=== PATIENT | male | born 1935 | race Two or more races ===

== ENCOUNTER 2019-11-07 10:04 | Emergency (ER) | payer OTHER ==
[~2019-11-07] VITALS: Ht 167.6 cm; Wt 84.8 kg
[2019-11-07] MEDS ORDERED: PREDNISONE 5MG PO (10:20)
[2019-11-07] MEDS ORDERED: ZYTIGA250 MG PO (10:21)
== END 2019-11-07 14:28 | disposition home or self-care (01) ==
LOC: ER 10:04 → EDBD 11:01 → ER 11:01
DX: R42 Dizziness and giddiness (principal)

== ENCOUNTER 2019-12-02 08:34 | Outpatient (CLI) | payer OTHER ==
[~2019-12-02 08:34] MED LIST: PREDNISONE 5MG PO; ZYTIGA250 MG PO
== END 2019-12-02 15:00 | disposition home or self-care (01) ==
LOC: LAB 08:34
DX: D53.8 Other specified nutritional anemias (principal); D53.1 Other megaloblastic anemias, not elsewhere classified; D51.0 Vitamin B12 deficiency anemia due to intrinsic factor deficiency; E27.40 Unspecified adrenocortical insufficiency; E03.8 Other specified hypothyroidism

== ENCOUNTER 2020-03-27 15:07 | Inpatient (IN) | payer OTHER, MEDICARE ==
[~2020-03-27] VITALS: Ht 167.6 cm; Wt 5.0 kg
[2020-03-28] MEDS ORDERED: ACETAMINOPHEN500 M1 PO (09:35)
== END 2020-03-30 14:37 | disposition home or self-care (01) | DRG 723 ==
LOC: SURH 15:07
PROVIDERS: ADMIT Internal Medicine Hematology & Oncology
PROC: 30233R1 Transfusion of Nonautologous Platelets into Peripheral Vein, Percutaneous Approach (ICD-10-PCS; principal; 2020-03-27)
PROC: 8E0ZXY6 Isolation (ICD-10-PCS; 2020-03-27)
PROC: 30233N1 Transfusion of Nonautologous Red Blood Cells into Peripheral Vein, Percutaneous Approach (ICD-10-PCS; 2020-03-28)
DX: C61 Malignant neoplasm of prostate (principal); C79.82 Secondary malignant neoplasm of genital organs; C79.51 Secondary malignant neoplasm of bone; E44.0 Moderate protein-calorie malnutrition; D63.0 Anemia in neoplastic disease; R97.21 Rising PSA following treatment for malignant neoplasm of prostate; D69.6 Thrombocytopenia, unspecified

== ENCOUNTER 2020-04-13 16:59 | Inpatient (IN) | payer OTHER, MEDICARE ==
[~2020-04-13] VITALS: Ht 167.6 cm; Wt 72.6 kg
[~2020-04-13 16:59] MED LIST changes: +ACETAMINOPHEN500 M1 PO
[2020-04-14] MEDS ORDERED: VITAMINS (08:22)
[2020-04-17] MEDS ORDERED: FOLIC ACID1 MG PO (09:00)
[2020-04-17] MEDS ORDERED: PYRIDOXINE HCL100 MG PO (09:00)
== END 2020-04-17 09:25 | disposition home or self-care (01) | DRG 812 ==
LOC: SURH 16:59
PROVIDERS: ADMIT Internal Medicine Hematology & Oncology; ATTEND Internal Medicine Hematology & Oncology
PROC: 8E0ZXY6 Isolation (ICD-10-PCS; principal; 2020-04-13)
PROC: 30233N1 Transfusion of Nonautologous Red Blood Cells into Peripheral Vein, Percutaneous Approach (ICD-10-PCS; 2020-04-14)
PROC: 30233R1 Transfusion of Nonautologous Platelets into Peripheral Vein, Percutaneous Approach (ICD-10-PCS; 2020-04-14)
PROC: 07DR3ZX Extraction of Iliac Bone Marrow, Percutaneous Approach, Diagnostic (ICD-10-PCS; 2020-04-17)
DX: D53.1 Other megaloblastic anemias, not elsewhere classified (principal); C79.51 Secondary malignant neoplasm of bone; D61.818 Other pancytopenia; C61 Malignant neoplasm of prostate; Z19.1 Hormone sensitive malignancy status; D69.49 Other primary thrombocytopenia

== ENCOUNTER 2020-05-10 15:47 | Inpatient (IN) | payer OTHER | END 2020-05-13 21:10 | disposition home or self-care (01) | DRG 812 | LOC: ER 15:47 → MEDI 18:17 | PROVIDERS: ADMIT Internal Medicine | PROC: 8E0ZXY6 Isolation (ICD-10-PCS; principal; 2020-05-10) | PROC: 30233N1 Transfusion of Nonautologous Red Blood Cells into Peripheral Vein, Percutaneous Approach (ICD-10-PCS; 2020-05-11) | PROC: 30233R1 Transfusion of Nonautologous Platelets into Peripheral Vein, Percutaneous Approach (ICD-10-PCS; 2020-05-11) | PROC: 30233K1 Transfusion of Nonautologous Frozen Plasma into Peripheral Vein, Percutaneous Approach (ICD-10-PCS; 2020-05-11) | DX: D46.20 Refractory anemia with excess of blasts, unspecified (principal); D61.818 Other pancytopenia; C79.51 Secondary malignant neoplasm of bone; D46.Z Other myelodysplastic syndromes; C61 Malignant neoplasm of prostate; D69.49 Other primary thrombocytopenia ==

== ENCOUNTER 2020-06-03 15:09 | Inpatient (IN) | payer OTHER ==
[~2020-06-03] VITALS: Ht 167.6 cm; Wt 72.6 kg
[~2020-06-03 15:09] MED LIST changes: +FOLIC ACID1 MG PO; +PYRIDOXINE HCL100 MG PO; +VITAMINS
[2020-06-03] MEDS ORDERED: TRAM1TAB98 (15:43)
[2020-06-03] MEDS ORDERED: [UNRECOGNIZED DRUG - OTHER] (15:44)
--- NOTE | 2020-06-03 15:45 | NUR ---
SE RECIBE PTE ALERTA Y ORIENTADO X3 ACOMPANADO POR EL FAMILIAR EL CUAL REFIERE QUE EL PTE SE SIENTE MAREADO ,ES PTE DEL DR.MORALES DENNIS TIENE MIELODISPLASIA,MIELOFIBROSIS,FAMILIAR REFIERE QUE EL PTE TIENE ALEXANDR DOLOR DE ESPALDA SE LE RADHA S/V LA PRESION ALTERIAL 90/40 MANUAL ,PTE TUVO UN EPISODIO DE VOMITO EN EL TRIAGE.
--- NOTE | 2020-06-03 16:41 | NUR ---
SE RECIBE PACIENTE ALERTA Y ORIENTADO SE CONECTA A MONITOR CARDIACO Y OXIMETRIA DE [place] EVALUADO POR EL DR. PRAKASH SE ORIENTA A PACIENTE SOBRE TRATAMEINTO MEDICO SE EXTRAEN MUESTRAS DE [place] Y SE ADMINSITRA MEDICAMENTO GLENN ORDEN MEDICA BAJO MEDIDA ASEPTICAS. SE CANALIZA PACIENTE EN MANO DERECHO CON #18. SE COLOCA .9 NSS BAJANDO A 250 ML/HR.
--- NOTE | 2020-06-03 17:30 | NUR ---
SE RECIBE PACIENTE AL AREA DE CHEST PAIN ALERTA Y ORIENTADO X 3.IVF'S PATENTE EN PERIFERAL RT CON ANGIO #18 CON .9 @ 125ML/HR.SE ACOMODA EN [place] UNIDAD Y SE CONECTA A MONITOR CARDIACO.S/V T-97.3,R-17,P-60,SAT-98%.SE OBSERVA POR CAMBIOS EN V[place] CONDICION.
--- NOTE | 2020-06-03 18:30 | NUR ---
SE REALIZA NUESTRA DE NICHOLE PARA 4 UNIDADES DE PRBC'S A TRANSFUNDIR 2 UNIDADES COMPLETAS Y 2 FRACCIONADAS Y SE ENVIA AL LABORATORIO PARA SER RECOGIDO POR BANCO DE [facility].
== END 2020-06-08 14:58 | disposition expired | DRG 722 ==
LOC: ER 15:09 → MEDI 23:34
PROVIDERS: ADMIT Internal Medicine; ATTEND Internal Medicine
PROC: 30233N1 Transfusion of Nonautologous Red Blood Cells into Peripheral Vein, Percutaneous Approach (ICD-10-PCS; principal; 2020-06-04)
PROC: 30233R1 Transfusion of Nonautologous Platelets into Peripheral Vein, Percutaneous Approach (ICD-10-PCS; 2020-06-04)
PROC: 8E0ZXY6 Isolation (ICD-10-PCS; 2020-06-04)
PROC: 4A12X4Z Monitoring of Cardiac Electrical Activity, External Approach (ICD-10-PCS; 2020-06-04)
PROC: BW28ZZZ Computerized Tomography (CT Scan) of Head (ICD-10-PCS; 2020-06-05)
PROC: BB24Y0Z Computerized Tomography (CT Scan) of Bilateral Lungs using Other Contrast, Unenhanced and Enhanced (ICD-10-PCS; 2020-06-05)
PROC: B24BZZZ Ultrasonography of Heart with Aorta (ICD-10-PCS; 2020-06-06)
PROC: 4A033R1 Measurement of Arterial Saturation, Peripheral, Percutaneous Approach (ICD-10-PCS; 2020-06-06)
DX: C61 Malignant neoplasm of prostate (principal); I50.43 Acute on chronic combined systolic (congestive) and diastolic (congestive) heart failure; J96.01 Acute respiratory failure with hypoxia; C79.51 Secondary malignant neoplasm of bone; J90 Pleural effusion, not elsewhere classified; J98.11 Atelectasis; I42.0 Dilated cardiomyopathy; I11.0 Hypertensive heart disease with heart failure; I08.0 Rheumatic disorders of both mitral and aortic valves; I27.20 Pulmonary hypertension, unspecified; D63.0 Anemia in neoplastic disease; D69.6 Thrombocytopenia, unspecified; I95.9 Hypotension, unspecified; I44.7 Left bundle-branch block, unspecified; D46.Z Other myelodysplastic syndromes; R97.21 Rising PSA following treatment for malignant neoplasm of prostate; R41.82 Altered mental status, unspecified; Z66 Do not resuscitate; Z03.818 Encounter for observation for suspected exposure to other biological agents ruled out
CPT/HCPCS: 71275